=== PATIENT | male | born 1985 | race Caucasian/White ===

== ENCOUNTER 2021-11-09 16:22 | Emergency (ER) | payer OTHER, SELFPAY ==
[2021-11-09 16:35] VITALS: BP 148/96; PULSE 85; RESP 14; TEMP 37.3; O2SAT 99
--- NOTE | 2021-11-09 16:46 | ED.SKABFB ---
HPI - Skin/Abscess/Foreign Bdy General Chief complaint: Skin/Abscess/Foreign Body Stated complaint: wasp sting Time Seen by Provider: 11/09/21 16:46 Source: patient Mode of arrival: ambulatory Limitations: no limitations History of Present Illness HPI narrative: 36 y/o male presented for c/o wasp sting to right lower calf. Sting occurred yesterday. He took benadryl last night. Endorses increased itching, redness and mild swelling today. Pain is mild. Denies lip, tongue, throat swelling, shortness of breath or wheezing, fevers or chills. MD complaint: rash Related Data Allergies Allergy/AdvReac Type Severity Reaction Status Date / Time No Known Allergies Allergy Verified 11/09/21 16:42 Review of Systems Review of Systems: CONSTITUTIONAL: Denies body aches, fever, chills, or sweats. EYES: Denies visual changes, redness, or discharge. ENT: Denies rhinorrhea, congestion, sore throat, or otalgia. CARDIOVASCULAR: Denies chest pain, palpitations, or edema. RESPIRATORY: Denies cough or dyspnea. GASTROINTESTINAL: Denies abdominal pain, nausea, vomiting, or diarrhea. SKIN: Reports redness and itching to leg MUSCULOSKELETAL: Denies back pain, joint pain, or myalgia. NEUROLOGIC: Denies headache, numbness, tingling, or weakness. PMFSH Comments At time of signature, I have reviewed and agree with nursing past medical, surgical, social and family history unless otherwise noted. Please see nursing chart for further information. There is no relevant family history pertinent to the presenting complaint Exam Narrative: GENERAL: Well-appearing. EYES: conjunctivae clear, and EOMI. ENT: Mucous membranes moist. CHEST: Clear to auscultation. . HEART: Regular rate and rhythm. SKIN: Warm, dry. Irregular red area to right lower posterior leg approx 10cm diameter, warm, c/w insect sting reaction; no fluctuance or drainage NEURO: Alert and oriented x3. PSYCH: Normal mood and affect Course Course Emergency Course: Patient is aware of diagnosis, understands and agrees to treatment plan. Anticipatory guidance given. Patient agrees to follow-up as directed and is aware of reasons to seek care at the emergency department. Portions of this record may have been created with voice recognition software Level of Care: Express Care Visit Vital Signs Vital signs: Vital Signs Temperature 99.1 F 11/09/21 16:35 Pulse Rate 85 11/09/21 16:35 Respiratory Rate 14 11/09/21 16:35 Blood Pressure 148/96 H 11/09/21 16:35 Pulse Oximetry 99 11/09/21 16:35 Oxygen Delivery Room Air 11/09/21 16:35 Temperature 99.1 F 11/09/21 16:35 Pulse Rate 85 11/09/21 16:35 Respiratory Rate 14 11/09/21 16:35 Blood Pressure 148/96 H 11/09/21 16:35 Pulse Oximetry 99 11/09/21 16:35 Oxygen Delivery Room Air 11/09/21 16:35 Reviewed MDM - Skin/Abscess/Foreign Bdy MDM Narrative Medical decision making narrative: Advised supportive treatment for insect sting reaction. Plan to start steroid, if sx worsen abx is prescribed as he does not have pcp. Instructed patient to go to nearest ER immediately for any worsening symptoms including but not limited to: fever, spreading rash, pain, sore throat, headache, dizziness, chest pain, trouble breathing, or any symptoms concerning to the patient. Differential Diagnosis Differential diagnosis: Likely abscess of skin or subcutaneous tissue, urticaria, herpes zoster, cellulitis and contact dermatitis Discharge Plan Discharge Clinical Impression: Insect bites Qualifiers: Encounter type: initial encounter Site of insect bite: lower leg Patient Disposition: Home, Self-Care Condition: Stable Additional Instructions: Take the steroid prescription as directed Take Benadryl every 6-8 hours as needed for itching. Cool compresses to the sites of itching, avoid hot water/showers etc If redness and swelling increases, start the antibiotic Avoid scratching to prevent skin infections. Fol
== END 2021-11-09 16:54 | disposition home or self-care (01) ==
PROVIDERS: Emergency Provider Nurse Practitioner Family
DX: T63.461A Toxic effect of venom of wasps, accidental (unintentional), initial encounter (principal)
CPT/HCPCS: 99213; G0463

== ENCOUNTER 2024-08-24 10:36 | Emergency (ER) | payer OTHER, SELFPAY ==
--- NOTE | 2024-08-24 10:37 | ED_ITS ---
HPI - Back Pain/Injury General Chief Complaint: Back Pain/Injury Stated Complaint: Lower Back Pain Time Seen by Provider: 08/24/24 11:18 Source: patient, RN notes reviewed and old records reviewed Mode of arrival: ambulatory Limitations: no limitations History of Present Illness HPI Narrative: 39-year-old male presents to the [facility] with low back pain. was boxing 4-5 days ago and did not stretch properly. did take ibuprofen and a Carey Denies any loss of retention bowel bladder. No numbness tingling in extremities. Pain is worse with changing of position. No saddle anesthesia Onset (ago): day(s) (-5) Related Data Allergies Allergy/AdvReac Type Severity Reaction Status Date / Time No Known Allergies Allergy Verified 08/24/24 10:47 Review of Systems Review of Systems: All systems reviewed & are unremarkable except as noted in HPI and below Constitutional: Constitutional: Reports no additional constitutional complaints ENT: Reports system reviewed and no additional complaints, except as documented Cardiovascular: Cardiovascular: Reports no additional cardiovascular complaints, Denies chest pain and Denies dyspnea Respiratory: Respiratory: Reports no additional respiratory complaints, Denies chest congestion, Denies cough and Denies dyspnea Musculoskeletal: Musculoskeletal: Reports as per HPI and Reports back pain Integumentary/Breasts: Skin/Breast: Reports system reviewed and no additional complaints, except as docu PMFSH Comments At the time of my signature, I reviewed and agree with the nursing past medical, surgical, social, and family history. There is no relevant family history pertinent to the patient complaint. Exam Const: General: cooperative, healthy appearing, comfortable, no acute distress, well developed, alert and well nourished Nutritional Appearance: well nourished Orientation/consciousness: patient oriented x3 Limitations: no limitations HENMT: Head: normal to inspection Eyes: General: appearance normal, both eyes and all related structures Alignment and Position: alignment normal Neck: Neck: normal visual inspection, full ROM, no lymphadenopathy and no meningeal signs Chest: Chest palpation & inspection: normal inspection of the chest Resp: Effort & Inspection: normal respiratory effort and able to speak in complete sentences Auscultation: clear to auscultation bilaterally, no crackles, no rales, no rhonchi and no wheezes Cardio: Rate: regular rate GI: GI Palp: No abdominal tenderness, Yes Soft to palpation, No Tenderness to palpation present (GI) and No Guarding due to palpation present (GI) Back/Spine/Pelvis: Back: no CVA tenderness and back tenderness Thoracic/Lumbar Spine: paraspinal muscle tenderness bilaterally in the mid lumbar and in the lower lumbar, thoracic spinal tenderness and lumbar spinal tenderness Pelvis: no pain with anterior-posterior compression and no pain with lateral compression Skin: General skin exam: normal color and no rashes or lesions noted Neuro: General: patient oriented x3, gait normal, moves all extremities and no meningeal signs Cognition (Neuro): normal cognition Speech: normal speech Gait exam (Neuro): Normal gait present Extrem: General: normal to inspection, full ROM, capillary refill normal and normal gait Psych: Appearance: grossly normal and well kempt Mental Status: mental status grossly normal Speech and movement: Normal speech and movement present and Clear speech present Affect: normal affect Attitude: cooperative Course Course Level of Care: Express Care Visit Vital Signs Vital signs: Vital Signs Temperature 97.9 F 08/24/24 10:45 Pulse Rate 78 08/24/24 10:45 Respiratory Rate 17 08/24/24 10:45 Blood Pressure 129/84 08/24/24 10:45 Pulse Oximetry 99 08/24/24 10:45 Oxygen Delivery Room Air 08/24/24 10:45 Temperature 97.9 F 08/24/24 10:45 Pulse Rate 78 08/24/24 10:45 Respiratory Rate 17 08/24/24 10:45 Blood Pressure 129/84 08/24/24 10:45 Pulse Oximetry 99 08/24/24 10:45 Oxygen Delivery Room Air 08/24/24 10:45 Reviewed MDM - Back Pain/Injury MDM Narrative Medical decision making narrative: Patient sitting in exam. Patient is nontoxic, vitals are stable. Patient presents with low back pain for 4-5 days Patient with no red flag symptoms, no erythema, no rashes, no swelling. No midline tenderness. No direct trauma to indicate an x-ray Patient appropriate for outpatient treatment with close follow-up Discharge instructions reviewed with patient, as well as provided in writing per nursing staff. The instructions also include specific and strict return/GO TO THE ER as well as f/u information. All questions have been answered, and the patient deny any further questions with discharge and discharge plan. Some parts of this dictation were generated by voice recognition software and may contain typographical and/or grammatical inaccuracies. Differential Diagnosis Differential diagnosis: Likely lumbar radiculopathy, sciatica, strain of lumbar region, renal colic, pyelonephritis and thoracic back pain Critical Care Time Critical Care Time Critical Care Time: No Discharge Plan Discharge Clinical Impression: Strain of lumbar region Patient Disposition: Home Condition: Stable Instructions: Antibiotic Form, Low Back Strain (ED), Lower Back Exercises (ED) Additional Instructions: Take ibuprofen as directed to decrease inflammation and to help pain. Take Flexeril (muscle relaxer) as directed. Do not drink, drive, operate machinery, or do anything dangerous while taking this medication Exercise:Combine aerobic exercise, like walking or swimming, with specific exercises to keep the muscles in your back and abdomen strong and flexible. Proper Lifting:Be sure to lift heavy items with your legs, not your back. Do not bend over to pick something up. Keep your back straight and bend at your knees. Weight:Maintain a healthy weight. Being overweight puts added stress on your lower back. Avoid Smoking:Both the smoke and the nicotine cause your spine to age faster than normal. Proper Posture:Good posture is important for avoiding future problems. A therapist can teach you how to safely stand, sit, and lift. Use warm moist heat to help with pain. Using topical such as Biofreeze, Scott-Nolasco or Aspercreme can also help Follow up with Primary provider in 2-3 days, This may become a chronic condition and they will be the one to help manage your pain and order additional testing. Go to the nearest ER if you develop problems with bladder/bowel function, weakness or loss of feeling in one or both of your legs. Patient Language: Swedish Prescriptions: New ibuprofen [IBU] 600 mg tablet 600 mg PO TID PRN (Reason: pain) Qty: 30 0RF cyclobenzaprine 10 mg tablet 10 mg PO TID PRN (Reason: muscle spasm) Qty: 15 0RF lidocaine [Lidoderm] 5 % adhesive patch,medicated 1 patch topical DAILY Qty: 15 0RF Rx Instructions: leave on most painful area for up to 12 hrs Follow-up/Referrals: UNKNOWN,DOCTOR [Non-Staff] - Stand Alone Forms: Work/School Release IP Time of Disposition: 11:28
--- OUTSIDE RECORDS SUMMARY | 2024-08-24 10:41 | XMS_ITS | Data Portability ---
Author Organization [facility], Main Office Address [address] [place] [address] Assessment No assessment recorded. Plan of Treatment Reminders Order Date Submit Date Provider Last Modified By Organization Details Last Modified Time Details Appointments None recorded. Lab unlisted lab - surgical pathology, gross exam 2022 023 [email or web address] [facility] ([facility] [address] [place], [address], 14:46:07 Referral None recorded. Procedures vasectomy (PROC) 2022 023 [email or web address] Not available 09:23:17 Surgeries None recorded. Imaging None recorded. Medication Orders Xylocaine 20 mg/mL (2 %) injection solution 2022 023 [email or web address] Not available 14:46:07 Patient TargetsNo targets recorded. Patient InstructionsNo instructions recorded. Reason for Referral None Reported. 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 Procedures Surgical History Date Name Laterality Status Provider Name and Address Organization Details Recorded Time 11/16/2022 Vasectomy completed Kendrick Champagne MD [address] [facility], [address], [place], [address], [facility] 11/16/2022 17:12:33 Imaging Results None recorded. Procedure Notes None recorded. Medical Equipment None Reported. Allergies No known drug allergies Medications Name Sig Start Date Stop Date Status Note LastModified by Organization Details LastModified Time Xylocaine 20 mg/mL (2 %) injection solution Take 10 mL by injection route. 023 active Not Available Not Available Not Avai lable Vitals Date Recorded Body height Provider Name an d Address Organization Details Last Updated DateTime 10/11/2022 177.8 cm DANN Sadler [facility] [employer] 10/11/2022 16:32:07 Date Recorded Heart rate Body temperature Body mass index (BMI) Body weight Oxygen saturation Oxygen saturation in Arterial blood by Pulse oximetry Systolic blood pressure Diastolic blood pressure Provider Name and Address Organization Details Last Updated DateTime 3 74 /min 98.8 [degF] 25.8 kg/m2 45206.6 3 g 96 % 96 % 121 mm[Hg] 88 mm[Hg] Aura Rivera MA [place] [employer] [facility] [employer] 16:34:33 Date Recorded Body height Heart rate Body temperature Body mass index (BMI) Body weight Oxygen saturation Oxygen saturation in Arterial blood by Pulse oximetry Systolic blood pressure Diastolic blood pressure Provider Name and Address Organization Details Last Updated DateTime 177.8 cm 85 /min 98.8 [degF] 25.3 kg/m2 27526.2 6 g 97 % 97 % 144 mm[Hg] 89 mm[Hg] Aura Rivera MA [place] [employer] [facility] [employer] 16:44:18 Social History Question Answer Notes LastModified by Organizat ion Details LastModified Time Tobacco Smoking Status Never Smoker DANN Sadler null, [facility] [employer] 10/11/2022 16:33:36 What Is Your Level Of Caffeine Consumption? Moderate [email or web address] Information not available 10/11/2022 Which Illicit Or Recreational Drugs Have You Used? Marijuana Information not available 10/11/2022 What Was The Date Of Your Most Recent Tobacco Screening? 10/11/2022 Information not available 10/11/2022 Have You Used IV Drugs? No [email or web address] Information not available 10/11/2022 Sex: Unknown Functional Status Question Answer Note LastModified by Organizat ion Details LastModified Time Do you use any illicit or recreational drugs? Yes [email or web address] Information not available 10/11/2022 Do you or have you ever used any other forms of tobacco or nicotine? No [email or web address] Information not available 10/11/2022 What is your level of alcohol consumption? Moderate [email or web address] Information not available 10/11/2022 Mental Status None recorded. Family History Nothing Reported. Medical History No medical history recorded. Past Encounters Encounter ID Performer Location Encounter Start Date Encounter Closed Date Diagnosis/Indication Diagnosis SNOMED-CT Code Diagnosis ICD10 Code Diagnosis Note [id number] Kendrick Champagne MD [facility] [address] [place] [id number] 10/11/2022 16:15:45 10/11/2022 17:03:10 Vasectomy requested 475462141 Z30.2 Discussed with pt need to consider vasectomy and permanent and irreversib le, went over usual expecation s and risks of bleeding, infection, swelling, testicular pain and granuloma formation, went over need to use control until comfirm steril by semen analysis x 2 . Human bi lloma virus infection 953543998 B97.7 Small lesions on penis , will excise at time of vas [id number] Kendrick Champagne MD [facility] [address] [id number] 11/16/2022 16:35:46 11/16/2022 17:21:20 Male sterilization 212296635 Z30.2 Reminded to take it easy and use control until confirm steril by semen analysis. Health Concerns Section Related Observation LastModified by Organization Detai ls LastModified Time None Recorded Concern Status LastModified by Organization Details LastModified Time None Recorded Advance Directives Directive None Recorded Payers Encounter Date Sequence Insurance Name Policy Number Policy Billy Covered Member ID Billy Member ID Guarantor Name 10/11/2022 1 [employer] [place] ON [place] AFTER 2020 (MEDICAID REPLACEMENT - HMO) Markus Turner [id number] Markus Turner 11/16/2022 1 [employer] AFTER [place] (MEDICAID REPLACEMENT - HMO) Markus Turner [id number] Markus Turner Notes Date Note Type Note Provider Name and Address Organization Details Recorded Time 10/11/2022 text/html Pt presents with desire for permanent sterilization. Kendrick Champagne MD [address], [place], [address], [facility] 10/11/2022 17:35:00 11/16/2022 text/html Pt reaffirms his desire for permanent sterilization. Kendrick Champagne MD [address], [place], [address], [employer] 11/16/2022 17:13:29
[2024-08-24 10:45] VITALS: BP 129/84; PULSE 78; RESP 17; TEMP 36.6; O2SAT 99
== END 2024-08-24 11:31 | disposition home or self-care (01) ==
PROVIDERS: Emergency Provider Nurse Practitioner
DX: S39.012A Strain of muscle, fascia and tendon of lower back, initial encounter (principal); X58.XXXA Exposure to other specified factors, initial encounter; Y93.71 Activity, boxing
CPT/HCPCS: 99213; G0463